=== PATIENT | female | born 1950 | race Caucasian/White ===

== ENCOUNTER 2018-02-14 10:08 | Inpatient (IN) ==
[2018-02-14] MEDS ORDERED: Chlorhexidine Gluconate 2% 1 Pack (2 Cloths) TOPICAL ONE (11:00)
[2018-02-14] MEDS ORDERED: Chlorhexidine 4% Topical 120 APPLIC/120 ML Bottle TOPICAL SCH (11:00)
[2018-02-14] MEDS ORDERED: Metoprolol Tartrate 25 MG Tablet PO ONE (11:00)
[2018-02-14] MEDS ORDERED: Vancomycin Inj 1,000 MG in Sodium Chlor 0.9% Inj 250 ML IV.SIG SCH (11:00)
[2018-02-14] MEDS ORDERED: ceFAZolin 2 GM Premix Inj 2 GM/50 ML PIGGYBACK IV.SIG SCH (11:00)
[2018-02-14] MEDS ORDERED: Sodium Chlor 0.9% Inj 500 ML IV.CONT ONE (11:00)
[2018-02-14] MEDS ORDERED: Bupivacaine 0.5% Inj 50 ML MDV Vial ONE (12:13)
[2018-02-14] MEDS ORDERED: ceFAZolin 1 GM Premix Inj 2 GM/100 ML PIGGYBACK IV.SIG ONE (12:29)
[2018-02-14] MEDS ORDERED: Sodium Chlor 0.9% Inj 73.07 ML, Ropivacaine 0.5% PF Inj 24.63 ML, Ketorolac Inj 30 MG, ... P-ARTICULR SCH ×5 (13:00)
[2018-02-14] MEDS ORDERED: Sugammadex Inj 200 MG/2 ML Vial IV.PUSH ONE (14:40)
[2018-02-14] MEDS ORDERED: Bisacodyl 10 MG Supp RECTAL PRN (15:28)
[2018-02-14] MEDS ORDERED: HYDROmorphone PF Inj 1 MG/ML Ampul IV.PUSH PRN (15:28)
[2018-02-14] MEDS ORDERED: Post-op Orders (for Pharmacy) OTHER STA (15:28)
[2018-02-14] MEDS ORDERED: fentaNYL Citrate Inj 100 MCG/2 ML Ampul ONE (15:32)
--- NOTE | 2018-02-14 16:02 | XR ---
EXAM DATE: 02/14/2018 3:57 PM EST AGE/SEX: 68 years / Female INDICATIONS: Post OP. CLINICAL DATA: This is the patient's initial encounter. Patient reports that signs and symptoms have been present for 1 day and indicates a pain score of 0/10. MEDICAL/SURGICAL HISTORY: None. None. COMPARISON: No prior exams available for comparison. FINDINGS: Total knee arthroplasty is present. Hardware is intact. Alignment is anatomic. Skin vesta are prese nt ventrally. Surgical drains are noted. CONCLUSION: Satisfactory postop appearance Electronically signed by: Dmitri Cho MD Board Certified Radiologist 02/14/2018 4:00 PM EST
--- NOTE | 2018-02-14 16:11 | MP ---
cc: Markus Garcia MD, Carol MD DATE OF OPERATION: 02/14/2018 PREOPERATIVE DIAGNOSES: Right knee severe tricompartment osteoarthritis, genu valgus deformity. POSTOPERATIVE DIAGNOSIS: Right knee severe tricompartment osteoarthritis, genu valgus deformity. PROCEDURE PERFORMED: Right total knee arthroplasty - cemented [employer]. SURGEON: Markus Garcia MD PLANNING ENGINEER: Piedad Enrique PA-C ANESTHESIA: General, saphenous nerve adductor canal block, intraarticular block. TOURNIQUET TIME: 57 minutes at 250 mmHg. ESTIMATED BLOOD LOSS: 25 mL REPLACED: None. DRAINS: Two. COMPLICATIONS: None. PLAN OF ACTIVITY: As per orders. PROCEDURE: My assistant professor of life sciences, Piedad Enrique PA-C, was present for the entire surgical case. She was medically necessary for the entire case because of the complexity of case and to facilitate the performance of the procedure. The DUSTER TENDER at the back table was not of skill set to this case to manipulate the instruments, e.g. ball-tip type soft tissue tracker complement and permanent implants. PROCEDURE DETAILS: The patient was brought in the operating room and had satisfactory anesthesia by Dr. Hathaway of Department of Anesthesia. The right lower extremity was prepped and draped in the usual sterile manner. The extremity was exsanguinated by Isaias wrap. The extremity was exsanguinated by elevation and tourniquet inflated to 250 mmHg. A small anterior incision was made. Anterior medial exposure was performed. The patient was found to have severe osteoarthritis of all three compartments of the knee. The remaining portion of the medial and lateral meniscus were removed. The prepatellar fat pad was excised. The anterior cruciate ligament was removed. I used the [employer] total knee arthroplasty system, IM guide was used for the distal femur cut in a 7-degree valgus cut to accept a 62.5 mm femoral component. Extramedullary guide was used for the tibia. This was used to accept a 67 mm tibial component. Appropriate balance in the knee was made with both flexion and extension with the 14 mm insert. Undersurface of the patella was removed to accept a 28 mm 3-pronged patellar prosthesis. With the trial components, the patient found to have excellent balance of the knee and satisfactory range of motion and satisfactory stability of the knee. All trial components were removed. Preparation for cementing was made. Two packages of [place] bone cement by [employer] was used. First, the tibial component was cemented, which was a 67 mm tibial component, followed by the femoral component which is a 62.5 mm femoral component. A 14 mm x 67 mm polyethylene trial plastic was then placed on the proximal tibia. Undersurface of the patella was resurfaced using 28 mm patella 3-prong patellar prosthesis. All excess bone cement was removed. The bone cement allowed to harden for 13 minutes. The knee was irrigated with 4000 mL of sterile saline antibiotic solution. The knee also was injected with 100 mL of local anesthesia provided by the Department of Pharmacy. The bone cement was allowed to harden. The trial polyethylene plastic was removed and a 14 mm x 67 mm "lipped" polyethylene plastic was assembled onto the proximal tibial tray and it was secured to the tray with appropriate locking mechanism. Tourniquet was deflated. All bleeders were coagulated; the wound itself was dry. The knee was drained with two 1/8-inch drain. Hemovac drains. The capsule and extensor mechanism was repaired using #2 Ti-Cron suture in subcuticular layers with 0-Vicryl and 2-0 Vicryl, skin was approximated with skin vesta. Sterile dressings were applied. The patient tolerated the procedure well and arrived in the recovery room in stable and satisfactory condition. MD DAREK Olguin/aparna , 03:12 PM , 03:21 PM
[2018-02-14] MEDS ORDERED: ceFAZolin Inj 1 GM in Sodium Chlor 0.9% Inj 100 ML IV.SIG SCH (20:00)
[2018-02-14] MEDS ORDERED: Loratadine 10 MG Tablet PO SCH (21:00)
[2018-02-14] MEDS ORDERED: BELSOMRA 20 MG PO SCH (21:00)
[2018-02-14] MEDS: Senna/Docusate Sodium 8.6/50 MG Tablet PO SCH (21:00)
[2018-02-14] MEDS: ceFAZolin 1 GM Premix Inj 1 GM/50 ML PIGGYBACK IV.SIG SCH (22:38)
[2018-02-15] MEDS ORDERED: BELSOMRA 20 MG PO PRN (00:53)
[2018-02-15] MEDS: ceFAZolin 1 GM Premix Inj 1 GM/50 ML PIGGYBACK IV.SIG SCH ×2 (01:37→08:00)
[2018-02-15] MEDS ORDERED: Levothyroxine 112 MCG Tablet PO SCH (06:00)
[2018-02-15 06:20] LABS: Hematocrit 25.5 % (35.0-46.0); Hemoglobin 8.9 gm/dL (11.6-15.3)
--- NOTE | 2018-02-15 07:05 | P.PNOP ---
Subjective Interval history: POD#1 R TKR No chest pain,no SOB Explained operative findings,answered multiple questions Patient wants to go home today Physical Exam Vital signs: Vital Signs 02/14/18 11:24 02/14/18 11:36 02/14/18 15:24 Temperature 98.5 F Pulse Rate 54 L 60 93 H Respiratory Rate 16 14 Blood Pressure 140/65 119/69 Pulse Oximetry 100 100 96 02/14/18 15:30 02/14/18 15:45 02/14/18 15:50 Temperature Pulse Rate 90 81 Respiratory Rate 14 15 14 Blood Pressure 115/61 113/61 Pulse Oximetry 96 97 02/14/18 16:00 02/14/18 16:15 02/14/18 17:55 Temperature 98.0 F Pulse Rate 72 72 65 Respiratory Rate 15 16 20 Blood Pressure 108/59 L 106/59 L 103/56 L Pulse Oximetry 98 97 02/14/18 18:30 02/14/18 21:30 02/15/18 00:37 Temperature 97.8 F 97.4 F L Pulse Rate 65 59 L 66 Respiratory Rate 18 17 15 Blood Pressure 101/59 L 94/55 L 88/58 L Pulse Oximetry 96 96 95 02/15/18 02:07 02/15/18 04:00 Temperature 97.9 F Pulse Rate 69 Respiratory Rate 18 17 Blood Pressure 91/56 L Pulse Oximetry 95 Intake & Output 02/14/18 02/14/18 02/15/18 06:59 18:59 06:59 Intake Total 1350 / 1350 820 / 820 Output Total 550 / 550 120 / 120 Balance 800 / 800 700 / 700 Weight 69.7 kg 77.1 kg Intake: IV 350 / 350 100 / 100 Vancomycin Inj 1,000 MG In NS 250 / 250 Inj 250 ML @ 250 mls/hr 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 Rx#:[id number] Ancef 1 GM Premix Inj 1 gm In 100 / 100 100 / 100 50 ml @ 100 mls/hr IV.SIG Q6H TONI Rx#:[id number] Oral 720 / 720 Anesthesia Amount 1000 / 1000 Output: Urine 100 / 100 Estimated Blood Loss 25 / 25 Wound Drainage 425 / 425 120 / 120 # 1 Right Knee Hemovac 425 / 425 120 / 120 Other: # Voids 1 2 Date of Last Bowel Movement 02/14/18 # Bowel Movements 0 Weight On Admission 69.7 kg Narrative: N/V intact No calf pain;negative Ayala's sign Results - Labs CBC & Chem 7: 02/15/18 05:45 Laboratory Results - last 24 hr 02/14/18 02/15/18 11:10 05:45 Hgb 8.9 L Hct 25.5 L Blood Type O Positive Antibody Screen Negative MTS Gel Crossmatch See Detail - Imaging Impressions Knee X-Ray 02/14/18 15:24 CONCLUSION: Satisfactory postop appearance Assessment and Plan - Assessment and Plan Ortho stable Discharge home today Outpatient PT Xarelto 10mg QD x 4 weeks,TEDS for DVT prophylaxsis
[2018-02-15 07:11] VITALS: RESP 18
[2018-02-15] MEDS ORDERED: LEVOTHYROXINE 137 MCG PO SCH (09:00)
[2018-02-15] MEDS: Senna/Docusate Sodium 8.6/50 MG Tablet PO SCH (09:59)
[2018-02-15 12:43] VITALS: BP 95/54; PULSE 53; TEMP 98.5; O2SAT 98
[2018-02-15] MEDS ORDERED: Rivaroxaban 10 MG Tablet PO SCH (14:30)
== END 2018-02-15 14:10 | disposition home or self-care (01) | DRG 470 ==
LOC: HSDI 10:08 → N06 18:55
PROVIDERS: ADMIT Orthopaedic Surgery Orthopaedic Surgery of the Spine; ATTEND Orthopaedic Surgery Orthopaedic Surgery of the Spine
CPT/HCPCS: 73560; 85014; 85018; 86850; 86900; 86901; 86923; 94150; 97110; 97116; 97150; 97163; 97166; C1776; J0131; J0171; J0690; J0735; J1100; J1885; J2250; J2795; J3010; J3370; J7050; J7120; L1830